=== PATIENT | female | born 1990 | race Caucasian/White ===

== ENCOUNTER 2020-10-21 16:07 | Outpatient (CLI) | payer OTHER, SELFPAY ==
--- NOTE | ~2020-10-21 | XR_ITS ---
EXAMINATION: XR abdomen/kub 1V INDICATION: Constipation TECHNIQUE: Supine views of the abdomen were obtained on 2 radiographs. COMPARISON: None FINDINGS: A moderate volume of colonic stool is present. There are no dilated loops of bowel. The bow el gas pattern is normal. The visualized lung bases are clear. Phleboliths are noted in the pelvis. IMPRESSION: 1. Constipation. Reviewed, dictated and finalized at location A. IMPRESSION: 1. Constipation.
== END 2020-10-21 16:08 | disposition home or self-care (01) ==
LOC: ANHIMG 16:10
PROVIDERS: PCP Family Medicine; Visit Provider Nurse Practitioner Family
DX: K59.00 Constipation, unspecified (principal)
CPT/HCPCS: 74018

== ENCOUNTER 2021-07-28 13:05 | Outpatient (RCR) | payer OTHER, SELFPAY ==
--- NOTE | 2021-07-28 16:54 | PC.NURSE ---
In- 1305 Out- 1430 Reason for visit: Late was given the diagnosis of breastmilk jaundice. Mother states the Bilirubin levels resulted at 14. Mother desires to breastfeed. History: Mother Ada Hill delivered at [facility] on 06/20/21 vaginally with no complications and no medical separation. Mother has a history of PPD and denies any concerns today of anxiety or depression. She breastfeeds infant with a nipple shield about every 3 hours during the daytime and every 1.5 hours at night. She has had what she considers 6 good breastfeedings in 24 hours with about 4 snacking sessions . She bottle fed today with 15mls Enfamil neuropro from a bottle. She pumps her breast but not with a consistent schedule. She states is content after most feedings, maintains latch and latching is easy with a nipple shield. Sometimes latch is painful and mother adjusts the latch other times the discomfort subsides after 2 minutes. Infant History: 36w6d is with a nipple shield. Suck swallow ratio is 1:1. Infant is spitty after feedings but content. Observations: Infant latches well with the nipple shield. Encouraged mother to improve for a wide open gape latch and mother states he is use to this way of eating . is latched suboptimally on the nipple shield but is swallowing. weight: 5-11 Lowest weight: 5-6 Last weight: 8-0 Pre-feed weight:3882 Post-feed weight: 3959 Plan of Care: Mother plans to breastfeed infant more often (10-12 feedings) during the daytime, formula feed at nighttime, and use her spectra pump to stimulate her breast when she is not . Encouraged elevating infant after feedings, supplementing with formula and burping frequently. Mother voiced understanding the risk and benefits of supplementing and a schedule to maintain until the jaundice clears up. Follow up plans: There is a plan to follow up with a phone call to assess progress and answer any questions. Mother voiced understanding when to call ICP. A guide and handouts given regarding pumping, then a breastmilk jaundice information sheet from www.ncbi.nlh.gov.
== END 2021-10-05 09:14 | disposition home or self-care (01) ==
LOC: ANHOBOP 13:05
PROVIDERS: PCP Family Medicine; Visit Provider Pediatrics
DX: Z39.1 Encounter for care and examination of lactating mother (principal)
CPT/HCPCS: 99203; G0463

== ENCOUNTER 2021-10-01 11:09 | Outpatient (CLI) | payer OTHER, SELFPAY ==
--- NOTE | ~2021-10-01 | US_ITS ---
EXAMINATION:US venous doppler LE LT INDICATION:.. Leg swelling. TECHNIQUE: Multiple grayscale, color flow and Doppler images of the left lower extremity deep venous systems were obtained and reviewed. COMPARISON:No prior studies for comparison. FINDINGS: The common femoral, superficial femoral and popliteal veins demonstrate normal respiratory variation, augmentation and compressibility. Color flow is also seen within the posterior tibial, pe roneal, greater saphenous and profunda veins. IMPRESSION: 1: No lower extremity deep venous thrombosis. Reviewed, dictated and finalized at location A.
== END 2021-10-01 11:10 | disposition home or self-care (01) ==
PROVIDERS: PCP Family Medicine; Visit Provider Nurse Practitioner Family
DX: M79.662 Pain in left lower leg (principal); R09.89 Other specified symptoms and signs involving the circulatory and respiratory systems
CPT/HCPCS: 93971

== ENCOUNTER 2022-01-11 13:06 | Emergency (ER) | payer OTHER, SELFPAY ==
--- NOTE | ~2022-01-11 | XR_ITS ---
EXAMINATION: XR chest 2V DATE: 01/11/2022 13:50 INDICATION: Mid chest pain TECHNIQUE: PA and lateral views of the chest are obtained. COMPARISON: None available FINDINGS: The lungs are free of acute opacities. No pleural effusion or pneumothorax. The cardiomedia stinal silhouette is normal. The visualized bones and soft tissues are unremarkable. IMPRESSION: 1. No acute cardiopulmonary abnormality. Reviewed, dictated and finalized at location A.
--- NOTE | 2022-01-11 13:07 | ECG_ITS ---
Measurements Intervals [place] Rate: 97 P: 63 RI: 141 QRS: 81 QRSD: 86 T: 48 QT: 327 QTc: 415 Interpretive Statements SINUS RHYTHM POSSIBLE LEFT ATRIAL ENLARGEMENT [-0.1mV P WAVE IN V1/V2] NONSPECIFIC ST ABNORMALITY ABNORMAL ECG NO PREVIOUS ECG AVAILABLE FOR COMPARISON Electronically Signed On 01-11-2022 14:13:30 CDT by Miguel Angel Holguin M.D.
[2022-01-11 13:14] VITALS: BP 150/97; PULSE 109; RESP 16; TEMP 36.2; O2SAT 100
[2022-01-11 13:51] LABS: Basophils Percent Auto 0.6 % (0.2-1.2); Eosinophils Percent Auto 0.7 % (0-4.4); Hematocrit 42.9 % (37.0-47.0); Hemoglobin 14.7 g/dL (12.0-15.0); Immature Granulocyte Absolute 0.01 K/mm3 (0.00-0.031); Immature Granulocyte Percent A 0.2 % (0-0.5); Lymphocytes Absolute Auto 2.03 K/mm3 (0.9-3.2); Lymphocytes Percent Auto 37.9 % (18.3-44.2); Mean Corpuscular HGB Conc 34.3 g/dl (32-36); Mean Corpuscular Hemoglobin 29.8 pg (26-34); Mean Corpuscular Volume 86.8 fl (80-100); Mean Platelet Volume 10.3 fl (7.4-10.4); Monocytes Absolute Auto 0.5 K/mm3 (0.1-0.6); Monocytes Percent Auto 9.3 % (2.6-8.5); Neutrophils Absolute Auto 2.7 K/mm3 (1.3-6.7); Neutrophils Percent Auto 51.3 % (45.5-73.1); Platelet Count Result 258 k/mm3 (150-375); Red Blood Count 4.94 M/mm3 (4.2-5.4); White Blood Count 5.4 K/mm3 (4.5-10.0)
[2022-01-11 14:02] LABS: Alanine Aminotransferase 18 U/L (6-35); Albumin Level 5.3 g/dL (3.5-5.1); Alkaline Phosphatase 65 U/L (38-126); Anion Gap 14 mmol/L (8-16); Aspartate Amino Transferase 27 U/L (14-36); Bilirubin,Total 0.6 mg/dL (0.2-1.3); Blood Urea Nitrogen 15 mg/dL (7-17); Carbon Dioxide 28 mmol/L (22-30); Chloride 98 mmol/L (98-107); Estimated CRCL calculation 77 ml/min; Estimated Glomerular Filt Rate > 60; Glucose 112 mg/dL (65-110); Lipase 116 U/L (23-300); Potassium 3.8 mmol/L (3.4-5.0); Sodium 140 mmol/L (137-145)
[2022-01-11 14:08] LABS: INR 1.1; Prothrombin Time 13.4 Seconds (11.1-14.7)
[2022-01-11 14:09] LABS: Partial Thromboplastin Time 27.3 SECONDS (22.3-36.8)
[2022-01-11 14:14] LABS: Troponin I < 0.012 ng/mL (0.000-0.034)
[2022-01-11 14:42] VITALS: O2SAT 100
--- NOTE | 2022-01-11 15:01 | ED.CHESTPAIN ---
HPI - Chest Pain General Chief Complaint: Chest Pain Stated Complaint: Chest tightness, nausea Time Seen by Provider: 01/11/22 14:56 Source: patient History of Present Illness HPI narrative: 31 years old white female drove herself to the emergency room with intermittent chest pain, shortness of breath, lightheadedness, shaking. Patient reports a lot of stress lately, her uncle was yesterday, patient started on Zoloft few days ago. She denied any suicidal or homicidal ideation. No coronary artery risk factors. She denies any fever chills nausea vomiting. Currently feeling tired Related Data Allergies Allergy/AdvReac Type Severity Reaction Status Date / Time No Known Allergies Allergy Verified 01/11/22 14:45 Review of Systems Review of Systems: All systems reviewed & are unremarkable except as noted in HPI and below PMFSH Past Medical History Medical History Anxiety HLD (hyperlipidemia) Surgical History Surgical History S/P 06/20/21 Family History Family History Father Diabetes mellitus Hypertension Grandparent Hypertension Cerebrovascular accident Social History Social History Smoking status: Never smoker Second hand tobacco smoke exposure: No Alcohol intake: current Drinks per week: 1 Substance use: never Substance use type: does not use Gender identity (if verbalized by the patient): Female Sexual Orientation (if Verbalized by the Patient): Straight or Heterosexual Spiritual care concerns: No Exam Narrative: General appearance: Well-developed, well-nourished Skin: Normal color Head: Normocephalic, nontraumatic Eyes: Clear conjunctiva ENT: Oropharynx normal, ears normal, nose normal Neck: Supple, nontender Chest and respiratory: Airway patent, no respiratory distress, no accessory muscle use Heart: Regular rate/rhythm Abdomen: Soft, nontender, no organomegaly, quiet bowel sounds Vascular: Normal peripheral pulses, normal capillary refill. Musculoskeletal: Normal range of motion, nontender back Neurologic: Alert and oriented ?3, CONCESSION SUPERVISOR is normal as tested, no gross motor deficit Course Course Emergency Course: Patient is asymptomatic on arrival to the emergency room, no coronary artery risk factors, work-up showed no abnormality to explain patient condition. Anxiety-like symptom is my concern. Vital Signs Vital signs: Vital Signs Temperature 36.2 C L 01/11/22 13:14 Pulse Rate 109 H 01/11/22 13:14 Respiratory Rate 16 01/11/22 13:14 Blood Pressure 150/97 H 01/11/22 13:14 Pulse Oximetry 100 01/11/22 13:14 Oxygen Delivery Room Air 01/11/22 13:14 Temperature 36.2 C L 01/11/22 13:14 Pulse Rate 109 H 01/11/22 13:14 Respiratory Rate 16 01/11/22 13:14 Blood Pressure 150/97 H 01/11/22 13:14 Pulse Oximetry 100 01/11/22 14:42 Oxygen Delivery Room Air 01/11/22 14:42 MDM - Chest Pain Differential Diagnosis Differential diagnosis: Likely atypical chest pain, costochondritis, chest pain and other (Anxiety-like symptoms) Lab Data Result diagrams: 01/11/22 13:32 01/11/22 13:32 Labs: Lab Results 01/11/22 01/11/22 01/11/22 Range/Units 13:32 13:32 13:32 WBC 5.4 (4.5-10.0) K/mm3 RBC 4.94 (4.2-5.4) M/mm3 Hgb 14.7 (12.0-15.0) g/dL Hct 42.9 (37.0-47.0) % MCV 86.8 (80-100) fl MCH 29.8 (26-34) pg MCHC 34.3 (32-36) g/dl RDW 12.0 (11.5-14.5) % Plt Count 258 (150-375) k/m
[2022-01-11 15:32] VITALS: BP 116/84; PULSE 88; RESP 16; O2SAT 97
== END 2022-01-11 15:33 | disposition home or self-care (01) ==
PROVIDERS: Preventive Medicine Aerospace Medicine; Emergency Provider Emergency Medicine; PCP Family Medicine
DX: R07.9 Chest pain, unspecified (principal); F41.9 Anxiety disorder, unspecified; E78.5 Hyperlipidemia, unspecified; R94.31 Abnormal electrocardiogram [ECG] [EKG]
CPT/HCPCS: 36415; 71046; 80053; 81025; 83690; 84484; 85025; 85610; 85730; 93005; 99284

== ENCOUNTER → 2022-03-03 08:57 | Outpatient (CLI) | payer OTHER, SELFPAY ==
--- NOTE | ~2022-03-03 | US_ITS ---
US right upper quadrant INDICATION: Right upper quadrant pain. PROCEDURE: Realtime right upper abdominal ultrasound. COMPARISON: No prior studies for comparison. FINDINGS: The pancreas is normal without focal mass or pancreatic ductal dilation. Liver echotexture is normal without focal mass or intrahepatic biliary dilatation. There is normal directional flow i n the portal vein. The gallbladder is normal without stones, gallbladder wall thickening or pericholecystic fluid. Comm on bile duct measures 5 mm. No sonographic Pennington's sign. Right renal echotexture is normal without hydronephrosis or mass. IMPRESSION: 1: Normal limited abdominal ultrasound. Reviewed, dictated and finalized at location A. S FEEDER BROOMCORN
== END ==
PROVIDERS: PCP Family Medicine; Visit Provider Physician Assistant
DX: R10.11 Right upper quadrant pain (principal)
CPT/HCPCS: 76705

== ENCOUNTER → 2022-03-04 11:56 | Outpatient (CLI) | payer OTHER, SELFPAY ==
--- NOTE | ~2022-03-04 | CT_ITS ---
EXAMINATION: CT abdomen pelvis wo con DATE: 03/04/2022 12:11 INDICATION: Epigastric abdominal pain, right upper quadrant abdominal pain, diarrhea. History of appe ndectomy. TECHNIQUE: Computed tomography (CT) of the abdomen and pelvis was performed without intravenous contr ast. Automated exposure control and iterative reconstruction technique were employed. Exam dose: 418 .70 mGy-cm total exam DLP. COMPARISON: None. FINDINGS: The lung bases are clear. Normal heart size. No pericardial or pleural effusion. The liver, gallbladder, bile ducts, pancreas, pancreatic duct and spleen as well at this adrenal glan ds and kidneys appear normal on this limited noncontrast examination. Normal caliber of the abdominal aorta. No intraperitoneal or retroperitoneal or pelvic mass lesion or adenopathy or ascites. The uri nary bladder, uterus and adnexal areas are unremarkable. Status post appendectomy. There is a prominent of fecal material throughout the colon but no bowel obstruction, bowel wall thic kening, pneumatosis or intraperitoneal free air. Wide fat-containing umbilical hernia. Included skeletal structures are unremarkable. IMPRESSION: Status post appendectomy Prominent of fecal material throughout the colon; no bowel obstruction or free air Reviewed, dictated and finalized at Location A. Reviewed, dictated and finalized at location B. RINARY PRACTICE MANAGER
== END ==
PROVIDERS: PCP Family Medicine; Visit Provider Physician Assistant
DX: R10.13 Epigastric pain (principal); R19.7 Diarrhea, unspecified; K59.00 Constipation, unspecified; R10.829 Rebound abdominal tenderness, unspecified site
CPT/HCPCS: 74176

== ENCOUNTER 2022-03-18 07:16 | Outpatient (CLI) | payer OTHER, SELFPAY ==
--- NOTE | ~2022-03-18 | NM_ITS ---
History: Biliary dyskinesia Interpretation: Following intravenous administration of 5.1 mCi. of 99m Choletec, serial images obtai stas reveal prompt concentration by the liver which is normal in size and without any focal abnormalit ies. There is normal excretion from the liver. The gallbladder and small bowel are visualized by 60 minutes. At 60 minutes the patient intravenously received 0.02 mcg/kg of CCK and 30 cc normal saline delivered by palm over 60 minutes. The patient was imaged for approximately the next 40 minutes. Regions of in terest were drawn about the gallbladder and background and gallbladder ejection fraction calculated. The gallbladder ejection fraction measures 44%. ( GBEF will measure > or = 49%, in 95% of normals. GBEF will measure > or= 38% in 99% of normals ) Impression: Normal hepatobiliary scan. No evidence of cystic duct or common bile duct obstruction. This effecti vely excludes acute cholecystitis. Gallbladder ejection fraction is low normal to borderline decreased. Cristina et al.,Sincalide-Stimulated Cholescintigraphy: A Multicenter Investigation to Determine Opti mal Infusion Methodology and Gallbladder Ejection Fraction Normal Values. JNM. Vol 51. No.2. Apr 2009 . Reviewed, dictated and finalized at location . AL CONTACT WORKER Impression: Normal hepatobiliary scan. No evidence of cystic duct or common bile duct obst ruction. This effectively excludes acute cholecystitis. Gallbladder ejection fraction is low normal to borderline decreased. Cristina et al.,Sincalide-Stimulated Cholescintigraphy: A Multicenter Investiga tion to Determine Optimal Infusion Methodology and Gallbladder Ejection Fractio n Normal Values. JNM. Vol 51. No.2. Apr 2009.
== END 2022-03-18 07:17 | disposition home or self-care (01) ==
LOC: ANHIMG 07:23
PROVIDERS: PCP Family Medicine; Visit Provider Surgery
DX: R10.11 Right upper quadrant pain (principal)
CPT/HCPCS: 78226; A9537

== ENCOUNTER → 2023-01-19 12:09 | Outpatient (CLI) | payer OTHER, SELFPAY ==
--- NOTE | ~2023-01-19 | XR_ITS ---
EXAMINATION: XR chest 2V 01/19/2023 12:20 INDICATION: Cough PROCEDURE: 2 view chest COMPARISON: 01/11/2022 FINDINGS: The lungs are clear. The cardiomediastinal silhouette is within normal limits. There are no pleural effusions. There is no pneumothorax suspected. IMPRESSION: 1: NO ACUTE CARDIOPULMONARY DISEASE. Reviewed, dictated and finalized at location L.
== END ==
PROVIDERS: PCP Physician Assistant; Visit Provider Physician Assistant
DX: R05.9 Cough, unspecified (principal)
CPT/HCPCS: 71046